=== PATIENT | male | born 1990 | race African-American/Black ===

== ENCOUNTER 2020-03-01 20:15 | Emergency (ER) | payer BC ==
[~2020-03-01] VITALS: Ht 177.8 cm; Wt 90.7 kg
== END 2020-03-01 21:08 | disposition home or self-care (01) ==
LOC: ED 20:15
DX: S61.412A Laceration without foreign body of left hand, initial encounter (principal); X58.XXXA Exposure to other specified factors, initial encounter; Y93.89 Activity, other specified; Y92.89 Other specified places as the place of occurrence of the external cause; Y99.8 Other external cause status

== ENCOUNTER → 2020-09-19 | Outpatient (CLI) | payer BC | END | disposition home or self-care (01) | LOC: CT 08:00 | PROVIDERS: ATTEND Family Medicine | DX: N28.1 Cyst of kidney, acquired (principal); Q89.09 Congenital malformations of spleen; S30.1XXD Contusion of abdominal wall, subsequent encounter; S27.329D Contusion of lung, unspecified, subsequent encounter; X58.XXXD Exposure to other specified factors, subsequent encounter ==

== ENCOUNTER 2020-11-04 16:35 | Emergency (ER) | payer SELFPAY ==
[~2020-11-04] VITALS: Ht 177.8 cm; Wt 93.0 kg
== END 2020-11-04 19:07 | disposition home or self-care (01) ==
LOC: ED 16:35
DX: S06.0X0A Concussion without loss of consciousness, initial encounter (principal); S01.512A Laceration without foreign body of oral cavity, initial encounter; R91.1 Solitary pulmonary nodule; V49.88XA Car occupant (driver) (passenger) injured in other specified transport accidents, initial encounter; Y93.89 Activity, other specified; Y92.413 State road as the place of occurrence of the external cause; Y99.9 Unspecified external cause status

== ENCOUNTER 2021-03-09 16:27 | Emergency (ER) | payer SELFPAY ==
[~2021-03-09] VITALS: Ht 177.8 cm; Wt 90.7 kg
[2021-03-09] MEDS ORDERED: Motrin,Rufen800 MG PO (17:47)
== END 2021-03-09 17:53 | disposition home or self-care (01) ==
LOC: ED 16:27
DX: M25.552 Pain in left hip (principal); W22.8XXA Striking against or struck by other objects, initial encounter; Y93.89 Activity, other specified; Y92.89 Other specified places as the place of occurrence of the external cause; Y99.8 Other external cause status

== ENCOUNTER → 2022-02-12 | Outpatient (CLI) | payer BC ==
[~2022-02-12] MED LIST: Motrin,Rufen800 MG PO
== END | disposition home or self-care (01) ==
LOC: RAD 09:38
PROVIDERS: ATTEND Family Medicine
DX: M47.816 Spondylosis without myelopathy or radiculopathy, lumbar region (principal); M16.12 Unilateral primary osteoarthritis, left hip

== ENCOUNTER 2024-09-17 22:32 | Emergency (ER) | payer BC ==
[~2024-09-17] VITALS: Ht 177.8 cm; Wt 103.4 kg
[2024-09-17 23:53] LABS: BASO # 0.1 10*3/uL (0.0-0.1); BASO % 0.6 % (0.0-1.0); EOS # 0.2 10*3/uL (0.0-0.4); EOS % 1.4 % (1.0-4.0); HEMATOCRIT 40.9 % (42.0-52.0); MEAN CELL VOLUME 85.4 fl (80.0-94.0); MEAN CORPUSCULAR HGB CONC 32.8 g/dl (33.0-37.0); MEAN PLATELET VOLUME 9.9 fl (9.6-12.3); MONO % 9.6 % (3.0-9.0); NEUT # 6.3 10*3/uL (2.3-7.9); PLATELET COUNT AUTOMATED 302 10*3/uL (130-400); RED BLOOD COUNT 4.79 10*6/uL (4.50-5.90); RED CELL DISTRI WIDTH 13.2 % (0-14.5); WHITE BLOOD COUNT 10.8 10*3/uL (4.8-10.8)
[2024-09-18 00:13] LABS: BUN 17 mg/dl (9-23); CHLORIDE 107 mmol/L (98-107); POTASSIUM 3.9 mmol/L (3.4-5.1)
[2024-09-18] MEDS ORDERED: MEDROL DOSEPAK4 MG PO (01:36)
== END 2024-09-18 01:35 | disposition home or self-care (01) ==
LOC: ED 22:32
PROVIDERS: Internal Medicine
DX: B34.9 Viral infection, unspecified (principal); D64.9 Anemia, unspecified; Z20.822 Contact with and (suspected) exposure to COVID-19; Z79.899 Other long term (current) drug therapy

== ENCOUNTER 2024-09-24 16:50 | Emergency (ER) | payer BC ==
[~2024-09-24] VITALS: Ht 177.8 cm; Wt 103.4 kg
[~2024-09-24 16:50] MED LIST changes: +MEDROL DOSEPAK4 MG PO
[2024-09-24] MEDS ORDERED: SODIUM CHLORIDE 0.9% 1,000 ML IV ONE (16:55)
[2024-09-24] MEDS ORDERED: IOHEXOL 300 MG/ML 100 ML VIAL IV ONE (17:00)
[2024-09-24] MEDS ORDERED: diphenhydrAMINE hydrochloride 50 MG/ML VIAL IV ONE (17:10)
[2024-09-24] MEDS ORDERED: Metoclopramide Hydrochloride 10 MG/2 ML VIAL IV ONE (17:10)
[2024-09-24 17:29] LABS: BASO # 0.1 10*3/uL (0.0-0.1); BASO % 0.5 % (0.0-1.0); EOS # 0.1 10*3/uL (0.0-0.4); EOS % 0.3 % (1.0-4.0); HEMATOCRIT 43.9 % (42.0-52.0); MEAN CELL VOLUME 84.7 fl (80.0-94.0); MEAN CORPUSCULAR HGB 27.6 pg (27.0-31.0); MEAN CORPUSCULAR HGB CONC 32.6 g/dl (33.0-37.0); MEAN PLATELET VOLUME 10.1 fl (9.6-12.3); MONO # 1.4 10*3/uL (0.1-1.0); MONO % 6.8 % (3.0-9.0); NEUT # 16.1 10*3/uL (2.3-7.9); NEUT % 75.7 % (47.0-73.0); PLATELET COUNT AUTOMATED 356 10*3/uL (130-400); RED BLOOD COUNT 5.18 10*6/uL (4.50-5.90); RED CELL DISTRI WIDTH 13.6 % (0-14.5); WHITE BLOOD COUNT 21.3 10*3/uL (4.8-10.8)
[2024-09-24 17:49] LABS: ALKALINE PHOSPHATASE 81 U/L (46-116); BUN 16 mg/dl (9-23); CHLORIDE 106 mmol/L (98-107); POTASSIUM 3.1 mmol/L (3.4-5.1); SGPT/ALT 37 U/L (5-49); TOTAL PROTEIN 7.1 gm/dL (6.0-8.0)
[2024-09-24 18:40] LABS: BILIRUBIN Negative (Negative); CLARITY Cloudy (Clear); COLOR Yellow (Yellow); GLUCOSE Negative (Negative); KETONE Trace (Negative)
[2024-09-24 18:41] LABS: BACTERIA TRACE; BLOOD Negative (Negative); LEUKO ESTERASE 1+ (Negative); NITRITE Negative (Negative); PH 6.5 (4.5-8.0); RBC 0-2 rbc/hpf (0-2); UROBILINOGEN 0.2 E.U./dl (0.0-1.0)
[2024-09-24 18:42] LABS: MUCOUS 1+
[2024-09-24] MEDS ORDERED: POTASSIUM CHLORIDE 20 MEQ TAB PO ONE (20:25)
[2024-09-24] MEDS ORDERED: REGLAN10 M1 PO (20:25)
== END 2024-09-24 20:40 | disposition home or self-care (01) ==
LOC: ED 16:50
PROVIDERS: Nurse Practitioner Family
DX: K52.9 Noninfective gastroenteritis and colitis, unspecified (principal); Z79.899 Other long term (current) drug therapy